=== PATIENT | male | born 1990 | race Hispanic/Latino ===

== ENCOUNTER 2018-09-30 03:04 | Emergency (ER) | payer OTHER ==
[2018-09-30 03:26] VITALS: RESP 18
[2018-09-30] MEDS ORDERED: Sodium Chloride 0.9% 1,000 ML IV STA ×2 (03:43→06:15)
--- NOTE | 2018-09-30 03:59 | ED PDOC ---
HPI: Abdomen Chief Complaint (Provider): Abdominal Pain History Per: Patient History/Exam Limitations: no limitations Onset/Duration Of Symptoms: Days (x2) Location Of Pain/Discomfort: Epigastric Associated Symptoms: Nausea, Vomiting, Diarrhea. denies: Fever, Urinary Symptoms Additional Complaint(s): 28 years old male presents to ER for evaluation of epigastric abdominal pain onset 2 days ago. Patient reports shortly after he developed epigastric pain, he had nausea and vomiting. He reports he had multiple episodes of diarrhea yesterday morning. Patient states symptoms have persisted, nausea is still present but has slightly improved. He denies fever, chills, melena, hematochezia, hematemesis, rectal bleeding, sick contact and recent travel. PMD: None provided <Aubrey Shirley - Last Filed: 09/30/18 06:14> <Addy Yeung - Last Filed: 09/30/18 20:26> Time Seen by Provider: 09/30/18 03:18 Chief Complaint (Nursing): Abdominal Pain Past Medical History Reviewed: Historical Data, Nursing Documentation, Vital Signs Vital Signs: Last Vital Signs Temp 98.3 F 09/30/18 03:24 Pulse 102 H 09/30/18 03:24 Resp 18 09/30/18 03:24 BP 143/90 09/30/18 03:24 Pulse Ox 96 09/30/18 03:24 - Medical History PMH: No Chronic Diseases - Surgical History Surgical History: No Surg Hx - Family History Family History: States: Unknown Family Hx <Aubrey Shirley - Last Filed: 09/30/18 06:14> Vital Signs: Last Vital Signs Temp 98.2 F 09/30/18 11:40 Pulse 84 09/30/18 11:40 Resp 18 09/30/18 11:40 BP 132/75 09/30/18 11:40 Pulse Ox 96 09/30/18 12:35 <Addy Yeung - Last Filed: 09/30/18 20:26> - Home Medications Home Medications: Ambulatory Orders Medication Instructions Recorded Dicyclomine [Bentyl] 20 mg PO TID PRN #10 tab 09/30/18 Famotidine [Pepcid] 20 mg PO DAILY PRN #10 tab 09/30/18 Ondansetron ODT [Zofran ODT] 4 mg PO TID PRN #10 odt 09/30/18 - Allergies Allergies/Adverse Reactions: Allergies Allergy/AdvReac Type Severity Reaction Status Date / Time erythromycin base Allergy RASH Verified 09/30/18 03:24 Review of Systems ROS Statement: Except As Marked, All Systems Reviewed And Found Negative Constitutional: Negative for: Fever, Chills Gastrointestinal: Positive for: Nausea, Vomiting, Abdominal Pain (Epigastric), Diarrhea. Negative for: Melena, Hematochezia, Hematemesis, Other (Rectal bleeding) <Aubrey Shirley E - Last Filed: 09/30/18 06:14> Physical Exam - Reviewed Nursing Documentation Reviewed: Yes Vital Signs Reviewed: Yes - Physical Exam Appears: Positive for: Well, No Acute Distress Head Exam: Positive for: ATRAUMATIC, NORMOCEPHALIC Skin: Positive for: Normal Color, Warm. Negative for: Rash, Jaundice ENT: Positive for: Other (Mucous membrane dry) Gastrointestinal/Abdominal: Positive for: Bowel Sounds (hyperactive), Soft, Other (negative Smith's sign). Negative for: Tenderness, Guarding Back: Positive for: Normal Inspection. Negative for: L CVA Tenderness, R CVA Tenderness Neurological/Psych: Positive for: Awake, Alert, Oriented (x3) <Aubrey Shirley Lili - Last Filed: 09/30/18 06:14> - Laboratory Results Result Diagrams: 09/30/18 04:10 09/30/18 04:10 - ECG O2 Sat by Pulse Oximetry: 96 (RA) Pulse Ox Interpretation: Normal <Aubrey Shirley Lili - Last Filed: 09/30/18 06:14> - Laboratory Results Result Diagrams: 09/30/18 04:10 09/30/18 04:10 Lab Results: Total Bilirubin 2.2 mg/dl (0.2-1.3) H 09/30/18 04:10 AST 28 U/L (17-59) 09/30/18 04:10 ALT 33 U/L (21-72) 09/30/18 04:10 Alkaline Phosphatase 64 U/L (38-126) 09/30/18 04:10 Total Protein 7.3 G/DL (6.3-8.2) 09/30/18 04:10 Albumin 4.2 g/dL (3.5-5.0) 09/30/18 04:10 Globulin 3.2 gm/dL (2.2-3.9) 09/30/18 04:10 Albumin/Globulin Ratio 1.3 (1.0-2.1) 09/30/18 04:10 Lipase 42 U/L (23-300) 09/30/18 04:10 Urine Color Jerri (YELLOW) 09/30/18 04:10 Urine Clarity Slighty-cloudy (Clear) 09/30/18 04:10 Urine pH 5.0 (5.0-8.0) 09/30/18 04:10 Ur Specific [place] 1.030 (1.003-1.030) 09/30/18 04:10 Urine Protein 30 mg/dL (NEGATIVE) 09/30/18 04:10 Urine Glucose (UA) Neg mg/dL (NEGATIVE) 09/30/18 04:10 Urine Ketones 20 mg/dL (NEGATIVE) 09/30/18 04:10 Urine Blood Moderate (NEGATIVE) 09/30/18 04:10 Urine Nitrate Negative (NEGATIVE) 09/30/18 04:10 Urine Bilirubin Negative (NEGATIVE) 09/30/18 04:10 Urine Urobilinogen 2.0 mg/dL (0.2-1.0) 09/30/18 04:10 Ur Leukocyte Esterase Neg Ok/uL (Negative) 09/30/18 04:10 Urine RBC (Auto) 17 /hpf (0-3) H 09/30/18 04:10 Urine Microscopic WBC 4 /hpf (0-5) 09/30/18 04:10 Urine Bacteria Rare (<OCC) 09/30/18 04:10 <Addy Yeung - Last Filed: 09/30/18 20:26> Medical Decision Making Medical Decision Making: Time: 342 Initial Plan: --CMP --Lipase --CBC --Bentyl 20 mg PO --Pepcid 20 mg IVP --Zofran 4 mf IVP --Stool culture --Urinalysis 05 On re-evaluation, pt. reports feeling much better. No vomiting or diarrhea while in ED. Case d/w Dr. Yeung and informed of elevated bilirubin and states pt. can f/u especially if feeling better. Pt. informed of results. Agrees with plan and care. Advised to f/u with [facility] for further evaluation and for elevated bilirubin but is to return to ED immediately if symptoms worsen. Scribe Attestation: Documented by Angelica Pitt, acting as a scribe for CAREY Haywood. Provider Scribe Attestation: All medical record entries made by the Scribe were at my direction and personal ly dictated by me. I have reviewed the chart and agree that the record accurately reflects my personal performance of the history, physical exam, medical decision making, and the department course for this patient. I have also personally directed, reviewed, and agree with the discharge instructions and disposition <Aubrey Shirley - Last Filed: 09/30/18 06:14> Medical Decision Makin Patient still continues to have pain U/S ordered by CAREY Peterson to followup on results and re-evaluate patient <Addy Yeung - Last Filed: 09/30/18 20:26> Disposition - Patient ED Disposition Is Patient to be Admitted: No - Disposition Disposition: Routine/Home Disposition Time: 05:27 <Aubrey Shirley - Last Filed: 09/30/18 06:14> - Patient ED Disposition Is Patient to be Admitted: Transfer of Care - Disposition Disposition: Transfer of Care Disposition Time: 07:00 Patient Signed Over To: Tereza Peterson Handoff Comments: pending U/S and re-eval <Addy Yeung - Last Filed: 09/30/18 20:26> - Clinical Impression Clinical Impression: Gastroenteritis, Elevated bilirubin - Disposition Referrals: [facility] [Outside] [facility] [Outside] Condition: IMPROVED Additional Instructions: FOLLOW UP WITH [facility] FOR FURTHER EVALUATION RETURN TO ED IMMEDIATELY IF SYMPTOMS WORSEN FELIBERTO DESHPANDE, thank you for letting us take care of you today. Your provider was Addy Yeung MD and you were treated for VOMITING,ABD PAIN,DIARRHEA. The emergency medical care you received today was directed at your acute symptoms. I f you were prescribed any medication, please fill it and take as directed. It may take several days for your symptoms to resolve. Return to the Emergency Department if your symptoms worsen, do not improve, or if you have any other problems. Please contact your doctor or call one of the physicians/clinics you have been referred to that are listed on the Patient Visit Information form that is inclu ded in your discharge packet. Bring any paperwork you were given at discharge with you along with any medications you are taking to your follow up visit. Our treatment cannot replace ongoing medical care by a primary care provider outside of the emergency department. Thank you for allowing the [facility] team to be part of your care today. If you had an X-Ray or CT scan: A Radiologist will review the ED reading if any change in treatment is needed we will contact you. If you had a blood, urine, or wound culture: It will take several days for the results, if any change in treatment is needed we will contact you. If you had an STI test: It will take 48 hours for the results. Please call after 1 week if you have not heard back. Prescriptions: Dicyclomine [Bentyl] 20 mg PO TID PRN #10 tab PRN Reason: abdominal pain Famotidine [Pepcid] 20 mg PO DAILY PRN #10 tab PRN Reason: Dyspepsia Ondansetron ODT [Zofran ODT] 4 mg PO TID PRN #10 odt PRN Reason: Nausea/Vomiting Instructions: Bilirubin Blood Level, Gastroenteritis (ED) Forms: [employer] ([place])
[2018-09-30 04:22] LABS: BASO % 0.1 % (0.0-2.0); EOS % 0.4 % (0.0-4.0); LYMPH # 0.5 K/uL (1.0-4.3); LYMPH % 9.5 % (20.0-40.0); MEAN CELL VOLUME 85.9 fl (80.0-94.0); MEAN CORPUSCULAR HEMOGLOBIN 29.3 pg (27.0-31.0); MEAN CORPUSCULAR HGB CONC 34.1 g/dL (33.0-37.0); MONO # 0.7 K/uL (0.0-0.8); MONO % 12.5 % (0.0-10.0); NEUT # 4.2 K/uL (1.8-7.0); NEUT % 77.5 % (50.0-75.0); PLATELET COUNT 158 K/uL (130-400); RBC 5.13 Mil/uL (4.40-5.90); RED CELL DISTRIBUTION WIDTH 12.8 % (11.5-14.5); WHITE BLOOD COUNT 5.4 K/uL (4.8-10.8)
[2018-09-30 04:31] LABS: ALB/GLOB RATIO 1.3 (1.0-2.1); ALBUMIN 4.2 g/dL (3.5-5.0); ALT/SGPT 33 U/L (21-72); AST/SGOT 28 U/L (17-59); BLOOD UREA NITROGEN 11 mg/dl (9-20); CALCIUM 9.1 mg/dL (8.4-10.2); GFR NON-AFRICAN AMERICAN > 60; LIPASE 42 U/L (23-300)
[2018-09-30 05:16] LABS: URINE BACTERIA RARE (<OCC); URINE BILIRUBIN NEGATIVE (NEGATIVE); URINE BLOOD MODERATE (NEGATIVE); URINE CLARITY SLIGHTY-CLOUDY (Clear); URINE COLOR AMBER (YELLOW); URINE GLUCOSE (UA) NEG (NEGATIVE); URINE LEUKOCYTE ESTERASE NEG Leu/uL (Negative); URINE PROTEIN 30 mg/dL (NEGATIVE)
[2018-09-30 05:28] LABS: BANDS 1 % (0-2); LYMPHOCYTE 10 % (20-50); MONOCYTE 8 % (0-10); NEUTROPHIL 80 % (42-75); PLATELET ESTIMATE NORMAL (NORMAL); REACTIVE LYMPHOCYTES 1 % (0-0); TOTAL CELLS COUNTED 100
[2018-09-30 05:29] LABS: SPHEROCYTES SLIGHT
[2018-09-30] MEDS ORDERED: Alum-Mag Hydrox-Simethicone Susp (30 mL) PO STA (05:53)
[2018-09-30] MEDS ORDERED: Alum-Mag Hydrox-Simethicone Susp (30 mL) ONE (06:03)
--- NOTE | 2018-09-30 07:22 | ED PDOC ---
- Laboratory Results Result Diagrams: 09/30/18 04:10 09/30/18 04:10 Lab Results: Total Bilirubin 2.2 mg/dl (0.2-1.3) H 09/30/18 04:10 AST 28 U/L (17-59) 09/30/18 04:10 ALT 33 U/L (21-72) 09/30/18 04:10 Alkaline Phosphatase 64 U/L (38-126) 09/30/18 04:10 Total Protein 7.3 G/DL (6.3-8.2) 09/30/18 04:10 Albumin 4.2 g/dL (3.5-5.0) 09/30/18 04:10 Globulin 3.2 gm/dL (2.2-3.9) 09/30/18 04:10 Albumin/Globulin Ratio 1.3 (1.0-2.1) 09/30/18 04:10 Lipase 42 U/L (23-300) 09/30/18 04:10 Urine Color Jerri (YELLOW) 09/30/18 04:10 Urine Clarity Slighty-cloudy (Clear) 09/30/18 04:10 Urine pH 5.0 (5.0-8.0) 09/30/18 04:10 Ur Specific [place]osh 1.030 (1.003-1.030) 09/30/18 04:10 Urine Protein 30 mg/dL (NEGATIVE) 09/30/18 04:10 Urine Glucose (UA) Neg mg/dL (NEGATIVE) 09/30/18 04:10 Urine Ketones 20 mg/dL (NEGATIVE) 09/30/18 04:10 Urine Blood Moderate (NEGATIVE) 09/30/18 04:10 Urine Nitrate Negative (NEGATIVE) 09/30/18 04:10 Urine Bilirubin Negative (NEGATIVE) 09/30/18 04:10 Urine Urobilinogen 2.0 mg/dL (0.2-1.0) 09/30/18 04:10 Ur Leukocyte Esterase Neg Ok/uL (Negative) 09/30/18 04:10 Urine RBC (Auto) 17 /hpf (0-3) H 09/30/18 04:10 Urine Microscopic WBC 4 /hpf (0-5) 09/30/18 04:10 Urine Bacteria Rare (<OCC) 09/30/18 04:10 - ECG O2 Sat by Pulse Oximetry: 96 (RA) Pulse Ox Interpretation: Normal Medical Decision Making Medical Decision Makin Patient signed out to me by Dr. Yeung pending US, reassessment. Accession No. : [id number] Patient Name / ID : CHARLEE DAO / [id number] Exam Date : 09/30/2018 08:17:02 ( Approved ) Study Comment : Sex / Age : M / 28Y Creator : Konstantin Ward MD Dictator : Konstantin Ward MD B[employer]ai Culturist : Data Reviewer : Konstantin Ward MD Approver2 : Report Date : 09/30/2018 12:23:31 My Comment : Date of service: 09/30/2018 HISTORY: abd pain, elevated bili COMPARISON: None. TECHNIQUE: Sonographic evaluation of the right upper quadrant of the abdomen. FINDINGS: LIVER: Measures cm in length. Normal echogenicity of the liver parenchyma. No mass. No intrahepatic bile duct dilatation. GALLBLADDER: Unremarkable. No gallstones. COMMON BILE DUCT: Measures mm. No stones. No dilatation. PANCREAS: Unremarkable as visualized. No mass. No ductal dilatation. RIGHT KIDNEY: Measures cm in length. Normal echogenicity. No calculus, mass, or hydronephrosis. AORTA: No aneurysmal dilatation. IVC: Unremarkable. OTHER FINDINGS: None . IMPRESSION: Normal exam. 12:10 Pt feels better, pain resolved. Scribe Attestation: Documented by Era Alexandra, acting as a scribe for Tereza Peterson MD. Provider Scribe Attestation: All medical record entries made by the Scribe were at my direction and personally dictated by me. I have reviewed the chart and agree that the record accurately reflects my personal performance of the history, physical exam, medical decision making, and the department course for this patient. I have also personally directed, reviewed, and agree with the discharge instructions and disposition. Disposition - Clinical Impression Clinical Impression: Gastroenteritis - POA Present On Arrival: None - [facility] [Outside] Disposition: Routine/Home Disposition Time: 12:35 Condition: IMPROVED Additional Instructions: FOLLOW UP WITH [facility] FOR FURTHER EVALUATION RETURN TO ED IMMEDIATELY IF SYMPTOMS WORSEN FELIBERTO DESHPANDE, thank you for letting us take care of you today. Your provider was Addy Yeung MD and you were treated for VOMITING,ABD PAIN,DIARRHEA. The emergency medical care you received today was directed at your acute symptoms. If you were prescribed any medication, please fill it and take as directed. It may take several days for your symptoms to resolve. Return to the Emergency Department if your symptoms worsen, do not improve, or if you have any other problems. Please contact your doctor or call one of the physicians/clinics you have been referred to that are listed on the Patient Visit Information form that is included in your discharge packet. Bring any paperwork you were given at discharge with you along with any medications you are taking to your follow up visit. Our treatment cannot replace ongoing medical care by a primary care provider outside of the emergency department. Thank you for allowing the [facility] team to be part of your care today. If you had an X-Ray or CT scan: A Radiologist will review the ED reading if any change in treatment is needed we will contact you. If you had a blood, urine, or wound culture: It will take several days for the results, if any change in treatment is needed we will contact you. If you had an STI test: It will take 48 hours for the results. Please call after 1 week if you have not heard back. Prescriptions: Dicyclomine [Bentyl] 20 mg PO TID PRN #10 tab PRN Reason: abdominal pain Famotidine [Pepcid] 20 mg PO DAILY PRN #10 tab PRN Reason: Dyspepsia Ondansetron ODT [Zofran ODT] 4 mg PO TID PRN #10 odt PRN Reason: Nausea/Vomiting Instructions: Bilirubin Blood Level, Gastroenteritis (ED) Forms: [employer] (French)
[2018-09-30 11:40] VITALS: BP 132/75; PULSE 84; TEMP 98.2
--- NOTE | 2018-09-30 12:27 | US ---
Date of service: 09/30/2018 HISTORY: abd pain, elevated bili COMPARISON: None. TECHNIQUE: Sonographic evaluation of the right upper quadrant of the abdomen. FINDINGS: LIVER: Measures cm in length. Normal echogenicity of the liver parenchyma. No mass. No intrahepatic bile duct dilatation. GALLBLADDER: Unremarkable. No gallstones. COMMON BILE DUCT: Measures mm. No stones. No dilatation. PANCREAS: Unremarkable as visualized. No mass. No ductal dilatation. RIGHT KIDNEY: Measures cm in length. Normal echogenicity. No calculus, mass, or hydronephrosis. AORTA: No aneurysmal dilatation. IVC: Unremarkable. OTHER FINDINGS: None . IMPRESSION: Normal exam.
[2018-09-30 12:35] VITALS: O2SAT 96
== END 2018-09-30 12:40 | disposition home or self-care (01) ==
LOC: H.ER 03:04
DX: K52.9 Noninfective gastroenteritis and colitis, unspecified (principal); Z88.1 Allergy status to other antibiotic agents; Z79.899 Other long term (current) drug therapy
CPT/HCPCS: 76705; 80053; 81003; 83690; 85025; 96361; 96374; 96375; 96376; 99284; J1885; J2405; J7030